=== PATIENT | female | born 1965 | race Caucasian/White ===

== ENCOUNTER 2016-08-07 18:19 | Emergency (ER) | payer MEDICARE, MEDICAID ==
[2016-08-07 18:35] VITALS: TEMP 97.5; BMI 43.0
[2016-08-07 18:49] LABS: WBC/URINE TNTC (0-5)
[2016-08-07 18:59] LABS: LEUKOCYTES/URINE 1+ (NEGATIVE); NITRITE/URINE NEG (NEGATIVE); URINE OCCULT BLOOD NEG (NEG/TRACE)
[2016-08-07] MEDS ORDERED: OXYCODONE HCL 5 MG TABLET PO ONE (21:36)
[2016-08-07] MEDS ORDERED: CEFTRIAXONE 500 MG VIAL IM ONE (21:36)
[2016-08-07] MEDS ORDERED: TRIMETHOPRIM-SULFAMETHOXAZOLE TAB PO ONE (21:36)
[2016-08-07 21:37] VITALS: BP 152/97; PULSE 61
--- NOTE | 2016-08-07 21:39 | EDPRACDOC ---
- General Information Chief Complaint: Abdominal Pain Stated Complaint: LOWER ABD PAIN & BACK PAIN Information Source: Patient Mode Of Arrival: Car Home Medications: Home Medications Bumetanide [Bumex] 1 mg PO DAILY 03/16/14 CloNIDine (Antihypertensive) [Catapres] 0.1 mg PO TID 04/11/14 Losartan Potassium [Cozaar] 100 mg PO DAILY 04/11/14 Gabapentin [Neurontin] 600 mg PO TID 11/24/14 Aspirin 81 mg PO DAILY 01/28/15 Ticagrelor [Brilinta] 90 mg PO BID 01/28/15 Atorvastatin [Lipitor 40 mg Tablet] 40 mg PO QAM 02/01/15 Omeprazole 40 mg PO DAILY 02/01/15 Fenofibrate [Lipofen] 150 mg PO DAILY 08/15/15 Albuterol Sulfate [Proventil Hfa] 1 - 2 puff INH Q4H PRN 10/04/15 Beclomethasone Dipropionate [QVar 80 (8.7 gm inhaler)] 2 puff INH BID PRN Furosemide 40 mg PO DAILY PRN 10/04/15 Diazepam [Valium] 5 mg PO BID 11/05/15 Amlodipine [Norvasc] 5 mg PO DAILY 03/14/16 Escitalopram Oxalate [Lexapro] 20 mg PO DAILY 03/14/16 Solifenacin Succinate [Vesicare] 10 mg PO DAILY 03/14/16 Vego Insulin Pump 0 units SQ .CONTINUOUS 03/14/16 Ferrous Sulfate [Feosol] 325 mg PO BID 05/31/16 Metoprolol Tartrate 25 mg PO BID #60 tablet 05/31/16 Meloxicam [Mobic] 15 mg PO DAILY 08/07/16 Nitroglycerin [Nitrostat] 0.4 mg SL Q5MX3 PRN 08/07/16 Ondansetron [Zofran Odt] 4 mg PO Q6H PRN #20 tab.rapdis 08/07/16 Oxycodone Immediate Release [Oxycodone Immediate Release (OxyIR)] 5 mg PO Q6H PRN #20 tab 08/07/16 Sulfamethoxazole/Trimethoprim [Bactrim Ds Tablet] 1 tab PO BID #14 tab 08/07/16 Allergies/Adverse Reactions: Allergies Allergy/AdvReac Type Severity Reaction Status Date / Time hydrocodone [Hydrocodone] Allergy Severe See Verified 08/07/16 19:37 Comments prednisone Allergy Hives* Verified 08/07/16 19:37 - History of Present Illness Onset: 24 hrs HPI: PT PRESENTS FOR LOWER BACK PAIN AND SUPRAPUBIC PAIN. STATES THIS HAS BEEN ONGOING FOR THE PAST 24 HOURS. Pain Location: Reports: Suprapubic Pain Context: Reports: Spontaneous Pain Severity: Moderate Pain Quality: Reports: Sharp, Stabbing Pain Radiation: Reports: Back : No Adult Abdominal History: Denies: Abdominal Surgery, Urolithiasis, Bowel Obstruction, Similar Pain (dx) Female Abdominal History: Denies: Abdominal Surgery, UTI, Ectopic, PID, Urolithiasis, Similar Pain (dx) Modifying Factors: improves with: Nothing Female Associated Signs & Symptoms: Reports: Nausea Oral Intake: Normal Urinary Output: Normal ED Past Medical History - History Reviewed Yes Nurses notes reviewed and agree except as marked - Patient Medical History Neurological History: Reports: Cerebrovascular Accident (February 2015, no residual deficits) Cardiac History: Reports: Coronary Artery Disease, Hypertension, Congestive Heart Failure, Heart Attack (stent 2014), Cardiac Catheterization (7 YEARS AGO, MOST RECENT IN DECEMBER 2014 PER PT), Stress Test, Hypercholesterolemia, Syncope. Denies: CABG Respiratory History: Reports: Asthma GI/ History: Reports: Renal Failure (short term - from outpt [facility]), Gastroesophageal Reflux Psychological History: Reports: Anxiety. Denies: Depression, Schizophrenia, Substance Use Disorder Systemic History: Reports: Anemia (BLED AFTER HAVING KIDS), Diabetes. Denies: Cancer, Hyperthyroidism, Hypothyroidism, HIV Additional Past Medical History: CHRONIC PAIN Surgical History: Reports: Cholecystectomy, Cardiac Catheterization (7 YEARS AGO , MOST RECENT IN DECEMBER 2014 PER PT), Hernia Surgery. Denies: CABG, Hysterectomy , Angioplasty, Other - Family Medical History Reports: Hypertension (mother and father), Diabetes (mother, father), Cancer ( mother - lung, sister - pancreatic), Stroke (mother, both grandfathers), Cardiac Disorders (mother) - Social Medical History Smoking Status: Never smoker Social History: Reports: Benzodiazipine Use. Denies: Substance Use Disorder EDM Review of Systems - Review of Systems ROS Negative Except as Marked: Yes All systems reviewed and were negative except as marked - Physical Exam Constitutional: Alert Oriented to: Time, Person, Place Last recorded Vital Signs: Last Vital Signs Temp 97.5 F 01/21/17 18:29 Pulse 64 08/07/16 18:29 Resp 18 08/07/16 18:29 BP 143/78 08/07/16 18:29 Pulse Ox 99 08/07/16 18:29 Oxygen Pulse Oxygen Saturation 99 O2 Device Oxygen Flow Rate Fraction of Inspired Oxygen ( FIO2) - HEENT Head: Normal ( normocephalic) Eye Exam: Normal (PERRL, EOMI, Sclera white) Oropharynx: Normal (Pharynx:Moist without exudate,Gums-no swelling) Nose: No Symptoms Reported (septum midline) Neck: Normal (FROM, trachea at midline) - Respiratory/Cardiovascular Respiratory: Normal - CTA (BBS clear to auscultation without adventitious sounds ) Cardiovascular: Normal (RRR without murmur, gallop or rub) - GI Auscultation: Normal (NABS) Palpation: Normal (Soft,No rebound or guarding, non distended) Tenderness: Mild, Suprapubic Dennis's Sign: Negative Rectal Exam: Deferred - Musculoskeletal Back: Normal (Non-Tender) Extremities: Normal (Normal tone, Pulses 2+ No cyanosis or edema, FROM) - Integumentary Skin: Normal, Warm, Dry Lymphatics: Normal (no adenopathy) - Neurologic Memory Impaired: Normal Motor Function: Normal (Normal tone, Pulses 2+ No cyanosis or edema, FROM) Cranial Nerve: Normal (CN II-X11 intact sensation, strength 5/5) Cerebellar: Normal Mood Description: Normal Perception: Normal - Differential Diagnosis UTI - Results POC Capillary Glucose 64 MG/DL (70-99) L 08/07/16 21:22 Urine Color Yellow 08/07/16 18:35 Urine Clarity Clear 08/07/16 18:35 Urine pH 5.0 (5.0-8.0) 08/07/16 18:35 Ur Specific Tamms 1.010 (1.003-1.035) 08/07/16 18:35 Urine Protein Neg (NEG/TRACE) 08/07/16 18:35 Urine Glucose (UA) Neg (NEGATIVE) 08/07/16 18:35 Urine Ketones Neg (NEGATIVE) 08/07/16 18:35 Urine Occult Blood Neg (NEG/TRACE) 08/07/16 18:35 Urine Nitrite Neg (NEGATIVE) 08/07/16 18:35 Urine Bilirubin Neg (NEGATIVE) 08/07/16 18:35 Urine Urobilinogen 0.2 MG/DL (0-1) 08/07/16 18:35 Ur Leukocyte Esterase 1+ (NEGATIVE) H 08/07/16 18:35 Urine RBC 2-5 (0-5) 08/07/16 18:35 Urine WBC Tntc (0-5) H 08/07/16 18:35 Urine WBC Clumps Present (NONE) H 08/07/16 18:35 Ur Epithelial Cells 2+ 08/07/16 18:35 Urine Bacteria Few (NEG/FEW) 08/07/16 18:35 Hyaline Casts 2-5 (0-2) H 08/07/16 18:35 Urine Mucus Occ (NEG/OCC) 08/07/16 18:35 Urine Yeast Few (NONE) H 08/07/16 18:35 Lab Results 08/07/16 08/07/16 21:22 18:35 POC Capillary Glucose 64 L Urine Color Yellow Urine Clarity Clear Urine pH 5.0 Ur Specific Tamms 1.010 Urine Protein Neg Urine Glucose (UA) Neg Urine Ketones Neg Urine Occult Blood Neg Urine Nitrite Neg Urine Bilirubin Neg Urine Urobilinogen 0.2 Ur Leukocyte Esterase 1+ H Urine RBC 2-5 Urine WBC Tntc H Urine WBC Clumps Present H Ur Epithelial Cells 2+ Urine Bacteria Few Hyaline Casts 2-5 H Urine Mucus Occ Urine Yeast Few H Decision Time to Discharge: 21:39 - Departure Disposition: Home Condition: Stable Final Diagnosis: UTI (urinary tract infection) Qualifiers: Urinary tract infection type: acute cystitis Hematuria presence: with hematuria Qualified Code(s): N30.01 - Acute cystitis with hematuria Instructions: Acute Abdominal Pain (ED), Urinary Tract Infection in Women (ED) , Dysuria Education/Counseling Given To: Patient Education/Counseling Given Regarding: Diagnosis, Treatment, Prognosis, Follow Up Referrals: Rema Bernal PA [Primary Care Provider] - One Week Prescriptions: Ondansetron [Zofran Odt] 4 mg PO Q6H PRN #20 tab.rapdis PRN Reason: Nausea/Vomiting Oxycodone Immediate Release [Oxycodone Immediate Release (OxyIR)] 5 mg PO Q6H PRN #20 tab PRN Reason: Pain Sulfamethoxazole/Trimethoprim [Bactrim Ds Tablet] 1 tab PO BID #14 tab Additional Instructions: INCREASE FLUID INTAKE. FOLLOW UP WITH PRIMARY CARE PROVIDER NEXT WEEK. TAKE ALL ANTIBIOTICS PRESCRIBED. RETURN TO THE ED FOR WORSENING SYMPTOMS OR CONCERNS.
[2016-08-07] MEDS ORDERED: LIDOCAINE 1% 2 ML (METHYLPARABEN FREE) ONE (21:42)
== END 2016-08-07 22:23 | disposition home or self-care (01) ==
LOC: ED 18:19
DX: N30.01 Acute cystitis with hematuria (principal)
CPT/HCPCS: 81001; 82962; 87077; 87086; 87186; 96372; 99283; A9270; J0696; J2001; J3490